=== PATIENT | female | born 1940 | race Caucasian/White ===

== ENCOUNTER → 2017-08-24 | Outpatient (CLI) | payer MEDICARE, OTHER ==
[2015-10-11 15:12] VITALS: BMI 23.7
[~2017-08-24] MED LIST: ACE325 PO; ALEN70TA2 PO; ANA1 PO; ANAS1TAB35 PO; ASPI81TA94 PO; AZIT-1 PO; BUDE0.5A6 NEB; CAL25 PO; CAL500 PO; CALC-852 PO; CALC500T42 PO; CAR3.125 PO; CAR6.25 PO; CITA-137 PO; DOCU-202 PO; ERG400 PO; FLU45SYR17 IM; FLUT1DIS27 IH; FURO20TA19 PO; GUAI600T57 PO; IBU200 PO; IPRA3AMP21 IH; LEV100 PO; LEV112 PO; LEV500 PO; LEVO100T95 PO; LEVO750T25 PO; LISI5TAB25 PO; LOR5 PO; METXL50 PO; MOM PO; MOXI400T2 PO; NONE NOW; OXYGEN INH; OXYGENHOME INH; PRAV40TA78 PO; PRED-1 PO; PRED20TA6 PO; SPIR25TA78 PO; SPIR50TA31 PO; THYROID MEDICATION
== END ==
LOC: AMB 10:45
PROVIDERS: ATTEND Nurse Practitioner
DX: R09.02 Hypoxemia (principal)
CPT/HCPCS: A0425; A0428